=== PATIENT | male | born 1970 | race Caucasian/White ===

== ENCOUNTER 2016-11-12 08:14 | Emergency (ER) | payer BC, OTHER ==
[2016-11-12] MEDS ORDERED: ASPIRIN CHEWTAB 81 MG TABLET ONE (08:41)
[2016-11-12] MEDS ORDERED: LACTATED RINGERS 1,000 ML ONE (08:42)
[2016-11-12 08:59] LABS: ABSOLUTE NEUTROPHIL COUNT 9.2 K/mm3 (1.8-7.7); BASO % 0.4 % (0.2-1.0); EOS % 0.2 % (0.9-2.9); HEMATOCRIT 42.2 % (32.0-52.0); HEMOGLOBIN 13.8 gm/l (14.0-18.0); IMM NEUT # 0.1 K/mm3 (0-0.2); IMM NEUT% 0.5 % (0-1); LYMPH # 1.1 (1.0-4.8); LYMPH % 9.9 % (15-45); MEAN CELL VOLUME 86.5 fl (80.0-94.0); MEAN CORPUSCULAR HEMOGLOBIN 28.3 pg (27.0-31.0); MEAN CORPUSCULAR HGB CONC 32.7 g/dl (33.0-37.0); MEAN PLATELET VOLUME 10.2 fl (7.4-10.4); MONO # 0.4 (0.0-0.8); PLATELET COUNT 257 K/mm3 (130-400); RED CELL DISTRIBUTION WIDTH 12.2 % (11.5-14.5)
[2016-11-12 09:10] LABS: ALB/GLOB RATIO 1.5 (>1.0); ALBUMIN 4.1 gm/dL (3.5-5.7); CALCIUM 10.2 mg/dL (8.6-10.3); MAGNESIUM 2.1 mg/dL (1.9-2.7)
[2016-11-12 09:16] LABS: TROPONIN I < 0.01 ng/ml (0.0-0.06)
[2016-11-12 09:20] LABS: CKMB ISOENZYME 2.7 ng/ml (0.6-6.3)
--- NOTE | 2016-11-12 09:28 | US ---
ABDOMINAL-LIMITED COMPARISON: None HISTORY: Right upper quadrant pain and nausea for one day. FINDINGS: Gall bladder: Normal length 12.4 cm. Normal wall thickness 2 mm. Negative Reyes's sign. No stone. Common hepatic duct: 3 mm. Common bile duct: 6 mm. IMPRESSION: 1. Normal ultrasound of the gallbladder and bile ducts. The results were sent to the emergency department electronic medical record system, 11/12/2016 at 9:29.
[2016-11-12] MEDS ORDERED: PROCHLORPERAZINE 5 MG/ML 2 ML VIAL ONE (09:30)
--- NOTE | 2016-11-12 09:30 | RAD ---
CHEST - 2 VIEWS COMPARISON: Chest 2 views, 12/22/2014 HISTORY: Epigastric pain. FINDINGS: Views: Frontal and lateral chest Lungs: Normal Heart and vessels: Normal Trachea and bronchi: Normal Mediastinum and du: Normal Costophrenic sulci: Normal Chest wall and bones: No acute finding. Spondylosis of the thoracic and lumbar spine. Upper abdomen: Normal. IMPRESSION: Negative 2 view chest.
[2016-11-12] MEDS ORDERED: MORPHINE SULFATE 4 MG/ML SYRINGE ONE (09:31)
[2016-11-12] MEDS ORDERED: MAALOX/LIDO2%VISC/SIMETHICONE 40 ML BOT ONE (10:08)
[2016-11-12] MEDS ORDERED: FAMOTIDINE 20 MG TABLET ONE (10:09)
[2016-11-12] MEDS ORDERED: SUCRALFATE 1 G/10 ML DOSE ONE (10:09)
== END 2016-11-12 11:27 | disposition home or self-care (01) ==
LOC: ED 08:14
DX: R10.13 Epigastric pain (principal); K21.9 Gastro-esophageal reflux disease without esophagitis; I10 Essential (primary) hypertension
CPT/HCPCS: 83690; 85025; 82553; 80053; 83735; 84484; 71020; 76705; 96375; 99284 ×2; 96374; 96361 ×2; 93005; A9270 ×4; J0780; J2270; J7120

== ENCOUNTER 2016-11-14 00:58 | Emergency (ER) | payer BC ==
[2016-11-14] MEDS ORDERED: IOPAMIDOL 370 (76%) IV.SOLN 150 ML IV ONE (00:59)
[2016-11-14] MEDS ORDERED: FAMOTIDINE 20 MG TABLET ONE (01:45)
[2016-11-14] MEDS ORDERED: MAALOX/LIDO2%VISC/SIMETHICONE 40 ML BOT ONE (01:45)
[2016-11-14] MEDS ORDERED: HYDROMORPHONE HCL 1 MG/ML SYRINGE ONE ×3 (02:30→03:33)
[2016-11-14] MEDS ORDERED: PANTOPRAZOLE SODIUM 40 MG VIAL IV ONE (02:30)
[2016-11-14 02:48] LABS: ABSOLUTE NEUTROPHIL COUNT 8.8 K/mm3 (1.8-7.7); BASO # 0.1 K/mm3 (0.0-0.2); BASO % 0.6 % (0.2-1.0); EOS # 0.1 (0.0-0.5); HEMATOCRIT 40.5 % (32.0-52.0); HEMOGLOBIN 13.2 gm/l (14.0-18.0); IMM NEUT% 0.3 % (0-1); LYMPH # 1.8 (1.0-4.8); LYMPH % 15.8 % (15-45); MEAN CELL VOLUME 86.9 fl (80.0-94.0); MEAN CORPUSCULAR HEMOGLOBIN 28.3 pg (27.0-31.0); MEAN CORPUSCULAR HGB CONC 32.6 g/dl (33.0-37.0); MEAN PLATELET VOLUME 10.5 fl (7.4-10.4); MONO # 0.7 (0.0-0.8); MONO % 6.3 % (4-12); PLATELET COUNT 232 K/mm3 (130-400); RED CELL DISTRIBUTION WIDTH 12.2 % (11.5-14.5)
[2016-11-14 03:07] LABS: ALB/GLOB RATIO 1.4 (>1.0); CALCIUM 9.7 mg/dL (8.6-10.3)
--- NOTE | 2016-11-14 07:46 | CT ---
EXAMINATION: Contrast enhanced CT scan of the abdomen and pelvis. CLINICAL INDICATION: Epigastric abdominal pain. COMPARISON: None TECHNIQUE: Oral contrast: None Following uneventful administration of 125 mL of Isovue 370, intravenously axial images were acquired from just above the domes of the diaphragm to the iliac crest. A CT scan of the pelvis was also obtained from the iliac crest to the initial tuberosities. Stacked axial, sagittal, and coronal images were reviewed. Findings: Abdomen CT: (Contrast-enhanced): The lung bases exhibit mild basilar atelectasis. No effusion or consolidation is identified. The liver is unremarkable. The gallbladder is within normal limits. There is no evidence of biliary obstruction. The spleen size and attenuation are within normal limits. The pancreas is normal in size and contours. No inflammatory stranding is identified. The pancreatic duct is unremarkable. The adrenals are unremarkable. The kidneys are without mass or hydronephrosis. No nephrolithiasis is identified. The abdominal aorta unremarkable. There is no retroperitoneal adenopathy identified. The stomach is unremarkable. The visualized segments of small and large bowel are within normal limits. There are mild spondylosis changes of the lower thoracic/upper lumbar vertebra. Pelvic CT: (Contrast -enhanced): The distal ureters and bladder are unremarkable. The prostate is normal in size. No adenopathy is identified. The distal abdominal aorta and iliac vessels are within normal limits. No inflammatory stranding or mucosal edema is identified. There are scattered diverticuli of the sigmoid colon without evidence of acute diverticulitis. No free fluid is identified. There is no pericecal inflammatory stranding. Spondylosis changes are noted. There is a bilateral pars interarticularis defect at L5-S1 with no listhesis. The overlying soft tissues are unremarkable. IMPRESSION: 1. No evidence of acute inflammatory or obstructive process involving the abdomen and pelvis. 2. Diverticulosis without evidence of acute diverticulitis. 3. 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 There is no listhesis. Spondylosis changes are noted. Findings were communicated by [facility] to the emergency department at: 3:54 AM 11/14/2016
== END 2016-11-14 04:27 | disposition home or self-care (01) ==
LOC: ED 00:58
DX: R10.13 Epigastric pain (principal); K59.01 Slow transit constipation; I10 Essential (primary) hypertension
CPT/HCPCS: 83690; 85025; 80053; 84484; 74177; 96375; 96376; 99284 ×2; 96374; J1170 ×3; A9270 ×2; C9113; Q9967